=== PATIENT | male | born 1975 | race Hispanic/Latino ===

== ENCOUNTER → 2018-01-03 | Outpatient (CLI) | payer BC ==
[~2018-01-03] MED LIST: IOPAMIDOL 370 MG/ML 200 ML INFUS..BTL INJ ONE; SODIUM CHLORIDE 0.9% 50ML 50 ML ONE
--- NOTE | 2018-01-03 16:31 | Diagnostic Imaging Report ---
PROCEDURE: US THYROID COMPARISON: None. INDICATIONS:Hyperthyroidism TECHNIQUE: Transverse and longitudinal sánchez-scale sonographic images of the thyroid were obtained and supplemented with color doppler. FINDINGS: Right thyroid lobe: Right thyroid lobe measures 5.3 x 1.4 x 2.1 cm, normal in size. Mildly heterogeneous echotexture without increased vascularity. No discrete thyroid nodules. Left thyroid lobe: Left thyroid lobe measures 5.0 x 1.4 x 1.8 cm, normal in size. Mildly heterogeneous echotexture without increased vascularity. No discrete thyroid nodules. Isthmus: 0.4 cm, normal in size. CONCLUSION: Normal sized thyroid. No discrete thyroid nodules. Dictated by: Rashard Bentley M.D. on 01/03/2018 at 16:35 Electronically approved by: Rashard Bentley M.D. on 01/03/2018 at 16:35
--- NOTE | 2018-01-03 16:48 | Diagnostic Imaging Report ---
PROCEDURE: CT ABDOMEN AND PELVIS WITH CONTRAST TECHNIQUE: The abdomen and pelvis were scanned utilizing a multidetector helical scanner from the diaphragm to the lesser trochanter after the IV administration of 100 cc of Isovue 370 and the oral administration of water. Coronal and sagittal multiplanar reformations were obtained. COMPARISON: None. INDICATIONS: ABDOMINAL PAIN, SWOLLEN LYMHPNODES FINDINGS: LOWER THORAX: Normal. HEPATOBILIARY: Diffuse hepatic steatosis. No focal hepatic lesions. No biliary ductal dilatation. SPLEEN: No splenomegaly. PANCREAS: No focal masses or ductal dilatation. ADRENALS: No adrenal nodules. KIDNEYS/URETERS: No hydronephrosis, stones, or solid mass lesions. PELVIC ORGANS/BLADDER: Mild enlargement of the prostate which measures approximately 3.9 x 5.7 x 4.6 cm (53.54 mL). PERITONEUM / RETROPERITONEUM: No free air or fluid. LYMPH NODES: No lymphadenopathy. VESSELS: Unremarkable. GI TRACT: No distention or wall thickening. The appendix is not visualized, but there is no suspicious inflammation in the right lower quadrant. BONES AND SOFT TISSUES: Unremarkable. IMPRESSION: 1. No specific findings to the patient's symptoms. No lymphadenopathy in the abdomen or pelvis. 2. Diffuse hepatic steatosis. 3. Mild prostatomegaly. Dictated by: Rashard Bentley M.D. on 01/03/2018 at 16:51 Electronically approved by: Rashard Bentley M.D. on 01/03/2018 at 16:51
== END ==
LOC: US 14:42
PROVIDERS: ATTEND Emergency Medicine
DX: E05.90 Thyrotoxicosis, unspecified without thyrotoxic crisis or storm (principal); R10.9 Unspecified abdominal pain
CPT/HCPCS: 74177; 76536; Q9967

== ENCOUNTER → 2019-05-20 | Outpatient (CLI) | payer BC ==
--- NOTE | 2019-05-20 16:12 | Diagnostic Imaging Report ---
Chest, 2 views, 05/20/2019. History: Lymphadenopathy. Comparison: None available. Findings: The cardiomediastinal silhouette and pulmonary vasculature are within normal limits. The lungs are clear without evidence of consolidation or pleural effusion. There are no acute osseous or soft tissue abnormalities. Impression: No acute cardiopulmonary abnormality. Signed by: Stanley Matamoros on 05/20/2019 4:08 PM
== END ==
LOC: RAD 15:36
PROVIDERS: ATTEND Emergency Medicine
DX: R59.1 Generalized enlarged lymph nodes (principal)
CPT/HCPCS: 71046